=== PATIENT | male | born 1970 | race Caucasian/White ===

== ENCOUNTER 2019-09-15 23:09 | Emergency (ER) | payer OTHER ==
[2019-09-15] MEDS ORDERED: GLUCAGON,HUMAN RECOMB 1 MG INJ SUBCUT ONE (23:57)
[2019-09-15] MEDS ORDERED: ONDANSETRON HCL INJ/PF 4 MG/2 ML SDV IV ONE (23:58)
--- NOTE | 2019-09-15 23:58 | ER Document Report ---
ED Medical Screen (RME) - General Chief Complaint: Foreign Body Stated Complaint: FOOD STUCK IN THROAT Time Seen by Provider: 09/15/19 23:51 Notes: Patient is a 48-year-old male who presents the emergency department after eating steak tonight and the patient states that he feels a piece of steak is stuck. Patient states that he has vomited 40-50 times. States that he feels like he cannot get it out. Patient ate the steak around 1900 tonight. Exam: Clear breath sounds throughout. I have greeted and performed a rapid initial assessment of this patient. A comprehensive ED assessment and evaluation of the patient, analysis of test res ults and completion of medical decision making process will be conducted by an additional ED providers. Past Medical History - Social History Frequency of alcohol use: Occasional Drug Abuse: None Physical Exam - Vital signs Vitals: Temp Pulse Resp BP Pulse Ox 98.3 F 99 16 149/86 H 98 09/15/19 23:14 09/15/19 23:14 09/15/19 23:14 09/15/19 23:14 09/15/19 23:14 Course - Vital Signs Vital signs: Temp Pulse Resp BP Pulse Ox 98.3 F 99 16 149/86 H 98 09/15/19 23:52 09/15/19 23:14 09/15/19 23:14 09/15/19 23:14 09/15/19 23:14
[2019-09-16] MEDS ORDERED: GLUCAGON,HUMAN RECOMB 1 MG INJ IV STA (01:24)
[2019-09-16] MEDS ORDERED: HYDROMORPHONE HCL INJ/PF 2 MG/ML AMPULE IV ONE (01:25)
[2019-09-16] MEDS ORDERED: DIAZEPAM INJ 10 MG/2 ML DISP.SYRIN IV ONE (01:25)
[2019-09-16] MEDS ORDERED: ONDANSETRON HCL INJ/PF 4 MG/2 ML SDV IV ONE (02:03)
--- NOTE | 2019-09-16 02:46 | ER Document Report ---
Entered by LAURA CALZADA SCRIBE 09/16/19 0111 Acting as scribe for:JENNIFER MEEHAN IV, MD ED Foreign Body - General Chief Complaint: Foreign Body Stated Complaint: FOOD STUCK IN THROAT Time Seen by Provider: 09/15/19 23:51 Mode of Arrival: Ambulatory Information source: Patient Notes: This 48 year old male patient presents to the ED today with complaints of a for eign body lodged in his esophagus. Patient states that he ate a steak around 1900 this evening and feels like it is stuck. Reports difficultly swallowing and vomiting. He reports that he tends to eat too fast and has had this happened before, but it never lasts this long. Denies any other complaints. Past Medical History - Social History Smoking Status: Current Every Day Smoker Cigarette use (# per day): No Chew tobacco use (# tins/day): No Smoking Education Provided: No Frequency of alcohol use: Occasional Drug Abuse: None Family History: Reviewed & Not Pertinent Patient has suicidal ideation: No Patient has homicidal ideation: No Review of Systems - Review of Systems Constitutional: No symptoms reported EENT: See HPI, Difficulty swallowing, Other - Foreign body Cardiovascular: No symptoms reported Respiratory: No symptoms reported Gastrointestinal: See HPI, Vomiting Genitourinary: No symptoms reported Male Genitourinary: No symptoms reported Musculoskeletal: No symptoms reported Skin: No symptoms reported Hematologic/Lymphatic: No symptoms reported Neurological/Psychological: No symptoms reported -: Yes All other systems reviewed and negative Physical Exam - Vital signs Vitals: Temp Pulse Resp BP Pulse Ox 98.3 F 99 16 149/86 H 98 09/15/19 23:14 09/15/19 23:14 09/15/19 23:14 09/15/19 23:14 09/15/19 23:14 - General General appearance: Alert, Anxious, Other - Pacing around the room - HEENT Head: Normocephalic, Atraumatic Eyes: Normal Pupils: PERRL - Respiratory Respiratory status: No respiratory distress Chest status: Nontender Breath sounds: Normal Chest palpation: Normal - Cardiovascular Rhythm: Regular Heart sounds: Normal auscultation Murmur: No Friction rub: No Gallop: None auscultated - Abdominal Inspection: Normal Distension: No distension Bowel sounds: Normal Tenderness: Nontender - Patient complains of epigastric pain, but was not able to ilicit any pain with palpation, Other - Abdomen soft Organomegaly: No organomegaly - Back Back: Normal, Nontender - Extremities General upper extremity: Normal inspection General lower extremity: Normal inspection - Neurological Neuro grossly intact: Yes Orientation: AAOx4 [place] Coma Scale Eye Opening: Spontaneous Farhan Coma Scale Verbal: Oriented [place] Coma Scale Motor: Obeys Commands Edd[place] Coma Scale Total: 15 - Psychological Associated symptoms: Anxious - Skin Skin Temperature: Warm Skin Moisture: Dry Skin Color: Normal Course - Re-evaluation Re-evalutation: 09/16/19 03:14 Patient's symptoms have resolved completely since drinking a Diet Coke here in the emergency department. Patient states that he feels much better, does not have any trouble managing his secretions, does not have the foreign body sensation that he did before. Patient has been able to keep down p.o. fluids without difficulty. All questions were answered prior to discharge. Emergency signs and symptoms, reasons to return to the emergency department discussed with patient. - Vital Signs Vital signs: Temp Pulse Resp BP Pulse Ox 98.3 F 99 16 149/86 H 98 09/15/19 23:52 09/15/19 23:14 09/15/19 23:14 09/15/19 23:14 09/15/19 23:14 Discharge - Discharge Clinical Impression: Sensation of foreign body in esophagus Condition: Stable Disposition: HOME, SELF-CARE Additional Instructions: Return to the Emergency Department without delay if any worse. HOME CARE INSTRUCTIONS & INFORMATION: Thank you for choosing us for your medical needs. We hope you're satisfied with the care you received. After you leave, you must properly care for your problem and, at the same time, observe its progress. Any condition can change. Some illnesses can change rapidly over hours or days. If your condition worsens, return to the Emergency Department or see your physician promptly. ABOUT YOUR X-RAYS AND EKG'S: If you had an EKG or X-rays taken, they have been read by the Emergency Physician. The X-rays and EKG's will also be read by a Ra diologist or Foiling Machine Operator within 24 hours. If discrepancies are noted, you will be notified by telephone. Please be certain the ED has a correct telephone number & address where you can be reached. Also, realize that some fractures or abnormalities do not show up on initial X-rays. If your symptoms continue, see your physician. ABOUT YOUR LABORATORY TEST: If you had laboratory tests, the results have been reviewed by the Emergency Physician. Some test results (for example cultures) may not be available for several days. You will be contacted if any test result shows you need additional treatment. Please be certain the ED has a correct telephone number and address where you can be reached. ABOUT YOUR MEDICATIONS: You will receive instructions on how to take your medicine on the prescription label you receive. Additional information may be provided by the Pharmacy. If you have questions afterwards, call the ED for clarification or further instructions. Some prescribed medications may cause drowsiness. Do not perform tasks such as driving a car or operating machinery without consulting your Pharmacist. If you feel you need a refill of pain medication, your condition will need re-evaluation. Please do not call for a refill of any medication. ABOUT YOUR SIGNATURE: Signature of this document acknowledges to followin. Understanding that you received emergency treatment and that you may be released before al medical problems are known or treated. Please be certain the ED has a correct phone number & address where you can be reached. 2. Acknowledgement that you will arrange for follow-up care as recommended. 3. Authorization for the Emergency Physician to provide information to your follow-up Physician in order to maximize your care. AT ANY TIME, IF YOUR SYMPTOMS CHANGE SIGNIFICANTLY OR WORSEN OR YOU DEVELOP NEW SYMPTOMS, RETURN TO THE EMERGENCY DEPARTMENT IMMEDIATELY FOR RE-EVALUATION. OUR GOAL IS TO PROVIDE EXCELLENT MEDICAL CARE! WE HOPE THAT WE HAVE MET YOUR EXPECTATIONS DURING YOUR EMERGENCY DEPARTMENT VISIT AND THAT YOU FEEL YOU HAVE RECEIVED EXCELLENT CARE! Esophageal Food Impaction Meat and poorly chewed food may stick in the lower esophagus, blocking it. We can relax the esophagus with medication, allowing the food to move into the stomach. Sometimes "carbonating" the water in the esophagus lifts food particles out of the obstruction and pushes the remaining food down. If these methods don't work, a tube is put down the esophagus to clear the blockage. Food "sticking" is called dysphagia. It's caused by a narrowing in the esophagus. Most commonly, it's due to chronic effects of esophagitis (an inflammation of the lower esophagus due to stomach acid, causing symptoms such as chest pain or heartburn). A hiatal hernia is often present. If the dysphagia has just begun, further testing to evaluate the cause of the obstruction will be necessary. If this is a recurrent problem, a procedure to dilate the esophagus may be necessary. Most commonly, the problem will resolve once swelling in the esophagus stops. Usual treatment is antacids or acid-suppressing medication. Membrane- coating medicine (such as Carafate), or medicine to keep acid out of the esophagus (such as Reglan) may be helpful for some patients. Call the doctor or return for re-evaluation if you develop chest pain, fever, shortness of breath, or inability to swallow fluids. Referrals: CHALINO IVY MD [HONORARY] - Follow up as needed I personally performed the services described in the documentation, reviewed and edited the documentation which was dictated to the scribe in my presence, and it accurately records my words and actions.
[2019-09-16 04:14] VITALS: BP 145/89
== END 2019-09-16 03:42 | disposition home or self-care (01) ==
LOC: ER 23:09
DX: R09.89 Other specified symptoms and signs involving the circulatory and respiratory systems (principal); F17.200 Nicotine dependence, unspecified, uncomplicated
CPT/HCPCS: 99283; 96372; 96374; 96375; J3360; J1610; J1170; J2405